=== PATIENT | female | born 1960 ===

== ENCOUNTER → 2022-09-20 | Day surgery (SDC) | payer OTHER | END | disposition home or self-care (01) | LOC: ADM 09-16 13:30 → AMB-ENDOS 06:56 | PROVIDERS: ATTEND Surgery | DX: D12.5 Benign neoplasm of sigmoid colon (principal); K50.80 Crohn's disease of both small and large intestine without complications; K57.30 Diverticulosis of large intestine without perforation or abscess without bleeding; R19.4 Change in bowel habit; R19.5 Other fecal abnormalities; Z20.822 Contact with and (suspected) exposure to COVID-19; K64.8 Other hemorrhoids ==